=== PATIENT | female | born 1935 | race Hispanic/Latino ===

== ENCOUNTER 2019-02-11 10:09 | Emergency (ER) | payer MEDICARE ==
[2019-02-11] MEDS ORDERED: AMOXICILLIN 500 MG CAPSULE PO ONE (10:42)
[2019-02-11] MEDS ORDERED: ACETAMINOPHEN EXTRA STRENGTH 500 MG TABLET ONE (10:59)
== END 2019-02-11 11:39 | disposition home or self-care (01) ==
LOC: EDH 10:09
DX: K04.7 Periapical abscess without sinus (principal); I10 Essential (primary) hypertension

== ENCOUNTER → 2023-09-21 | Outpatient (CLI) | payer MEDICARE ==
[~2023-09-21] MED LIST: ASPI-1197 PO; ATEN50TA PO; ATOR20TA65 PO; CEFU500T67 PO; DOCU-116 PO; FERR159T2 PO; FURO20TA4 PO; HYDR100T15 PO; IPRA3AMP24 NEB; LEVO75CA5 PO; MECO10005 PO; MEMA28CA16 PO; NIFE-39 PO; OLMESARTAN PO; OMEG-227 PO; QUET25TA36 PO; d3 PO
== END | disposition home or self-care (01) ==
LOC: SHCH 13:48
PROVIDERS: ATTEND Internal Medicine Cardiovascular Disease
DX: I11.0 Hypertensive heart disease with heart failure (principal); I50.32 Chronic diastolic (congestive) heart failure
CPT/HCPCS: 93306

== ENCOUNTER → 2024-03-10 | Outpatient (CLI) | payer OTHER, MEDICARE ==
--- NOTE | 2024-03-10 11:58 | HMCIMG ---
ESOPHAGUS REASON: Dysphagia, oropharyngeal phase COMPARISON: None TECHNIQUE: Esophagram was performed with fluoroscopic observation, fluoroscopy time was 0.6 minutes. 3 short cine sequences were acquired. FINDINGS: Patient demonstrates oral bolus control difficulty with early escape and with incomplete clearing. There is also pooling in the valleculae and perform sinuses. There is no visible aspiration. The esophagus appears otherwise unremarkable. There is no mass, ulcer or obstructing lesion. There is no evidence of Zenker's or other diverticulum. There is some tertiary contractions present consistent with presbyesophagus. IMPRESSION: 1. Oral bolus control difficulty, with some early escape coming complete clearing and no pooling in the vallecula and piriform sinuses. 2. No evidence of aspiration. 3. No evidence of focal mass, web or obstructing lesion. 4. 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
== END | disposition home or self-care (01) ==
LOC: RAH 08:18
PROVIDERS: ATTEND Internal Medicine Gastroenterology
DX: R13.12 Dysphagia, oropharyngeal phase (principal)
CPT/HCPCS: 74220

== ENCOUNTER → 2024-03-28 | Outpatient (CLI) | payer OTHER, MEDICARE ==
--- NOTE | 2024-03-28 13:30 | NUR ---
MBSS COMPLETED (OUTPATIENT). No aspiration; no penetrations. Recommend mechanical soft/ground (minced and moist) solids, thin liquids and pills whole with liquids as tolerated. Compensatory strategies: 1. sit upright during oral intake 2. small bites/sips 3. slow oral intake 4. extra dry swallows [employer]PORATE EVENT [employer]NER reviewed results and recommendations with patient and provider. CORPORATE EVENT PLANNER educated patient/provider on risks and consequences of aspiration. Speech therapy not warranted at this time. All questions answered. Addendum: 03/28/[address] [facility] Amended: Links added.
--- NOTE | 2024-03-28 15:13 | HMCIMG ---
MODIFIED BARIUM SWALLOW W CINE REASON: DYSPHAGIA, OROPHARYNGEAL PHASE//FEEDING DIFFICULTIES. COMPARISON: None TECHNIQUE: Modified barium swallow study was performed with referring speech therapist. FINDINGS: Please see procedure report by referring speech therapist. IMPRESSION: Modified barium swallow study.
== END | disposition home or self-care (01) ==
LOC: RAH 12:59
PROVIDERS: ATTEND Internal Medicine Gastroenterology
DX: R13.12 Dysphagia, oropharyngeal phase (principal); R63.30 Feeding difficulties, unspecified
CPT/HCPCS: 74230; 92611